=== PATIENT | female | born 1935 | race Two or more races ===

== ENCOUNTER 2016-11-18 21:09 | Inpatient (IN) | payer BC, MEDICARE, OTHER ==
[~2016-11-18] VITALS: Ht 157.5 cm; Wt 67.1 kg
[2016-11-18 21:15] VITALS: BP 148/74
[2016-11-18] MEDS ORDERED: MAG HYDROX/AL HYDROX/SIMETH 30 ML UDC PO PRN (22:30)
[2016-11-18] MEDS ORDERED: MAGNESIUM HYDROXIDE 30 ML UDC PO PRN (22:30)
[2016-11-18] MEDS ORDERED: ACETAMINOPHEN 325 MG TABLET PO PRN (22:30)
[2016-11-18] MEDS ORDERED: HYDR25TA4 PO (23:10)
[2016-11-18] MEDS ORDERED: LOSA50TA21 PO (23:10)
[2016-11-18] MEDS ORDERED: APIX2.5T PO (23:10)
[2016-11-18] MEDS ORDERED: FLUO40CA8 PO (23:10)
[2016-11-18] MEDS ORDERED: LEVO125T8 PO (23:10)
[2016-11-18] MEDS ORDERED: clonazePAM 0.5 MG TABLET ONE (23:36)
[2016-11-18] MEDS: clonazePAM 0.5 MG TABLET PO PRN (23:41)
[2016-11-19] MEDS ORDERED: NEBI10TA2 PO (03:46)
[2016-11-19] MEDS ORDERED: TRAZ-144 PO (03:46)
[2016-11-19] MEDS ORDERED: FOLI1TAB16 PO (03:46)
[2016-11-19] MEDS ORDERED: ALPR0.255 PO (03:46)
[2016-11-19 06:53] LABS: ALBUMIN 3.1 g/dL (3.4-5.0); BILIRUBIN,TOTAL 0.4 mg/dL (0.2-1.0); CALCIUM, SERUM 8.3 mg/dL (8.5-10.1); CREATININE 0.8 mg/dL (0.6-1.3); POTASSIUM 3.5 mmol/L (3.5-5.1); TOTAL PROTEIN, SERUM 6.1 g/dL (6.4-8.2)
[2016-11-19 06:59] LABS: BASOPHILS % (AUTO) 0.9 % (0.0-2.0); EOSINOPHILS # (AUTO) 0.2 /CMM (0.0-0.7); EOSINOPHILS % (AUTO) 5.1 % (0.0-6.0); HEMATOCRIT 41 % (33-45); HEMOGLOBIN 13.9 g/dL (11.5-14.8); LYMPHOCYTES # (AUTO) 0.8 /CMM (0.8-4.8); LYMPHOCYTES % (AUTO) 16.9 % (20.0-44.0); MEAN CORPUSCULAR HEMOGLOBIN 31 PG (26.0-33.0); MEAN CORPUSCULAR HGB CONC 34 g/dl (31.0-36.0); MEAN CORPUSCULAR VOLUME 91 fL (82-100); MONOCYTES # (AUTO) 0.8 /CMM (0.1-1.30); MONOCYTES % (AUTO) 17.9 % (2.0-12.0); NEUTROPHILS # (AUTO) 2.8 /CMM (1.8-8.9); NEUTROPHILS % (AUTO) 59.2 % (43.0-81.0); PLATELET COUNT (AUTO) 270 /CMM (150-450); RED BLOOD CELL COUNT(AUTO) 4.54 MIL/uL (4.0-5.2); WHITE BLOOD COUNT (AUTO) 4.7 K/uL (4.3-11.0)
[2016-11-19 07:38] LABS: DIFF TOTAL % 100 %
[2016-11-19 08:00] VITALS: BP 125/60
[2016-11-19] MEDS: LEVOTHYROXINE SODIUM 125 MCG TABLET PO SCH (08:56)
[2016-11-19] MEDS: LOSARTAN POTASSIUM 50 MG TABLET PO SCH ×2 (08:57→16:46)
[2016-11-19] MEDS: HYDROCHLOROTHIAZIDE 25 MG TABLET PO SCH (08:58)
[2016-11-19] MEDS: APIXABAN 2.5 MG TABLET PO SCH ×2 (09:19→16:47)
[2016-11-19 11:35] LABS: EOSINOPHILS % (MANUAL) 6 % (0-4); LYMPHOCYTES % (MANUAL) 19 % (16-48); PLATELET ESTIMATE ADEQUATE
[2016-11-19 11:36] LABS: RBC MORPHOLOGY COMMENT NORMAL RBC MORPH
[2016-11-19] MEDS: ARIPIPRAZOLE 2 MG TABLET PO SCH (12:41)
[2016-11-19] MEDS: IBUPROFEN 400 MG TABLET PO PRN (12:41)
[2016-11-19] MEDS: FLUOXETINE HCL 20 MG CAPSULE PO SCH (12:41)
[2016-11-19 16:00] VITALS: BP 108/62
[2016-11-19 20:16] VITALS: BP 129/65
[2016-11-19] MEDS: TEMAZEPAM 7.5 MG CAPSULE PO PRN (20:54)
[2016-11-20 08:00] VITALS: BP 139/88
[2016-11-20] MEDS: LEVOTHYROXINE SODIUM 125 MCG TABLET PO SCH (08:17)
[2016-11-20] MEDS: FLUOXETINE HCL 20 MG CAPSULE PO SCH (08:17)
[2016-11-20] MEDS: HYDROCHLOROTHIAZIDE 25 MG TABLET PO SCH (08:17)
[2016-11-20] MEDS: ARIPIPRAZOLE 2 MG TABLET PO SCH (08:18)
[2016-11-20] MEDS: LOSARTAN POTASSIUM 50 MG TABLET PO SCH ×2 (08:18→16:06)
[2016-11-20] MEDS: APIXABAN 2.5 MG TABLET PO SCH ×2 (08:21→16:07)
[2016-11-20 16:04] VITALS: BP 126/76
[2016-11-20 20:00] VITALS: BP_SYST 141; BP_SYST 146; BP_DIAS 62; BP_DIAS 69
[2016-11-20] MEDS: TEMAZEPAM 7.5 MG CAPSULE PO PRN (21:38)
[2016-11-21] MEDS: IBUPROFEN 400 MG TABLET PO PRN ×2 (01:44→14:24)
[2016-11-21 08:00] VITALS: BP 147/84
[2016-11-21] MEDS: LOSARTAN POTASSIUM 50 MG TABLET PO SCH ×2 (09:05→17:06)
[2016-11-21] MEDS: FLUOXETINE HCL 20 MG CAPSULE PO SCH (09:05)
[2016-11-21] MEDS: ARIPIPRAZOLE 2 MG TABLET PO SCH (09:05)
[2016-11-21] MEDS: LEVOTHYROXINE SODIUM 125 MCG TABLET PO SCH (09:05)
[2016-11-21] MEDS: HYDROCHLOROTHIAZIDE 25 MG TABLET PO SCH (09:06)
[2016-11-21] MEDS: APIXABAN 2.5 MG TABLET PO SCH ×2 (09:07→17:06)
[2016-11-21] MEDS: clonazePAM 0.5 MG TABLET PO PRN (11:10)
[2016-11-21] MEDS: FOLIC ACID 1 MG TABLET PO SCH (11:54)
[2016-11-21 16:00] VITALS: BP 119/76
[2016-11-21 20:34] VITALS: BP 143/85
[2016-11-21] MEDS: GUAIFENESIN/CODEINE 10 ML UDC PO PRN (21:47)
[2016-11-21] MEDS: TEMAZEPAM 7.5 MG CAPSULE PO PRN (21:48)
[2016-11-22] MEDS: IBUPROFEN 400 MG TABLET PO PRN ×3 (02:52→18:01)
[2016-11-22] MEDS: GUAIFENESIN/CODEINE 10 ML UDC PO PRN ×3 (03:08→22:18)
[2016-11-22 08:00] VITALS: BP 142/96
[2016-11-22] MEDS: HYDROCHLOROTHIAZIDE 25 MG TABLET PO SCH (08:14)
[2016-11-22] MEDS: LOSARTAN POTASSIUM 50 MG TABLET PO SCH ×2 (08:14→16:39)
[2016-11-22] MEDS: LEVOTHYROXINE SODIUM 125 MCG TABLET PO SCH (08:14)
[2016-11-22] MEDS: APIXABAN 2.5 MG TABLET PO SCH ×2 (08:15→16:40)
[2016-11-22] MEDS: FLUOXETINE HCL 20 MG CAPSULE PO SCH (08:15)
[2016-11-22] MEDS: ARIPIPRAZOLE 2 MG TABLET PO SCH (08:15)
[2016-11-22] MEDS: FOLIC ACID 1 MG TABLET PO SCH (08:15)
[2016-11-22 16:00] VITALS: BP 122/69
[2016-11-22 20:00] VITALS: BP 150/87
[2016-11-22] MEDS: TEMAZEPAM 7.5 MG CAPSULE PO PRN (22:17)
[2016-11-23 08:00] VITALS: BP 148/77
[2016-11-23] MEDS: FLUOXETINE HCL 20 MG CAPSULE PO SCH (08:26)
[2016-11-23] MEDS: HYDROCHLOROTHIAZIDE 25 MG TABLET PO SCH (08:26)
[2016-11-23] MEDS: LEVOTHYROXINE SODIUM 125 MCG TABLET PO SCH (08:26)
[2016-11-23] MEDS: ARIPIPRAZOLE 5 MG TABLET PO SCH (08:26)
[2016-11-23] MEDS: FOLIC ACID 1 MG TABLET PO SCH (08:26)
[2016-11-23] MEDS: LOSARTAN POTASSIUM 50 MG TABLET PO SCH ×2 (08:27→17:48)
[2016-11-23] MEDS: APIXABAN 2.5 MG TABLET PO SCH ×2 (08:37→17:49)
[2016-11-23] MEDS: IBUPROFEN 400 MG TABLET PO PRN ×2 (08:37→17:49)
[2016-11-23] MEDS: GUAIFENESIN/CODEINE 10 ML UDC PO PRN ×2 (08:37→22:04)
[2016-11-23] MEDS ORDERED: MIDAZOLAM HCL 2 MG/2ML VIAL ONE (12:14)
[2016-11-23] MEDS ORDERED: SUCCINYLCHOLINE CHLORIDE 20 MG/ML VIAL ONE (12:14)
[2016-11-23] MEDS ORDERED: ROCURONIUM BROMIDE 50 MG/5 ML ONE (12:14)
[2016-11-23] MEDS ORDERED: FENTANYL PF 100MCG/2ML AMPUL ONE (12:14)
[2016-11-23 16:10] VITALS: BP 124/87
[2016-11-23 19:58] VITALS: BP 131/86
[2016-11-23] MEDS: TEMAZEPAM 7.5 MG CAPSULE PO PRN (22:04)
[2016-11-24] MEDS: IBUPROFEN 400 MG TABLET PO PRN ×3 (00:13→21:31)
[2016-11-24] MEDS: GUAIFENESIN/CODEINE 10 ML UDC PO PRN ×2 (03:33→21:34)
[2016-11-24] MEDS ORDERED: MENTHOL/CETYLPYRD (CEPACOL) 1 LOZ LOZENGE ONE (04:10)
[2016-11-24] MEDS: MENTHOL/CETYLPYRD (CEPACOL) 1 LOZ LOZENGE PO PRN ×2 (04:13→09:20)
[2016-11-24 08:00] VITALS: BP 151/84
[2016-11-24] MEDS: APIXABAN 2.5 MG TABLET PO SCH ×2 (08:31→18:00)
[2016-11-24] MEDS: LEVOTHYROXINE SODIUM 125 MCG TABLET PO SCH (08:32)
[2016-11-24] MEDS: FOLIC ACID 1 MG TABLET PO SCH (08:32)
[2016-11-24] MEDS: FLUOXETINE HCL 20 MG CAPSULE PO SCH (08:33)
[2016-11-24] MEDS: LOSARTAN POTASSIUM 50 MG TABLET PO SCH ×2 (08:33→17:59)
[2016-11-24] MEDS: HYDROCHLOROTHIAZIDE 25 MG TABLET PO SCH (08:34)
[2016-11-24] MEDS: ARIPIPRAZOLE 5 MG TABLET PO SCH (09:00)
[2016-11-24 16:00] VITALS: BP 136/69
[2016-11-24] MEDS ORDERED: PETROLATUM,WHITE PACKET 5 GM PACKET TP PRN (18:30)
[2016-11-24 19:56] VITALS: BP 136/68
[2016-11-24] MEDS: OLANZAPINE 5 MG TABLET PO SCH (21:33)
[2016-11-24] MEDS: TEMAZEPAM 7.5 MG CAPSULE PO PRN (21:33)
[2016-11-25 08:00] VITALS: BP 132/73
[2016-11-25] MEDS: FLUOXETINE HCL 20 MG CAPSULE PO SCH (09:27)
[2016-11-25] MEDS: FOLIC ACID 1 MG TABLET PO SCH (09:27)
[2016-11-25] MEDS: LEVOTHYROXINE SODIUM 125 MCG TABLET PO SCH (09:27)
[2016-11-25] MEDS: HYDROCHLOROTHIAZIDE 25 MG TABLET PO SCH (09:28)
[2016-11-25] MEDS: APIXABAN 2.5 MG TABLET PO SCH ×2 (09:28→16:59)
[2016-11-25] MEDS: LOSARTAN POTASSIUM 50 MG TABLET PO SCH ×2 (09:28→16:58)
[2016-11-25] MEDS: MENTHOL/CETYLPYRD (CEPACOL) 1 LOZ LOZENGE PO PRN (11:44)
[2016-11-25 16:00] VITALS: BP 129/73
[2016-11-25 20:00] VITALS: BP 134/76
[2016-11-25] MEDS: GUAIFENESIN/CODEINE 10 ML UDC PO PRN (21:44)
[2016-11-25] MEDS: IBUPROFEN 400 MG TABLET PO PRN (21:45)
[2016-11-25] MEDS: OLANZAPINE 5 MG TABLET PO SCH (21:45)
[2016-11-25] MEDS: TEMAZEPAM 7.5 MG CAPSULE PO PRN (21:46)
[2016-11-26 08:00] VITALS: BP 131/78
[2016-11-26] MEDS: FOLIC ACID 1 MG TABLET PO SCH (09:17)
[2016-11-26] MEDS: FLUOXETINE HCL 20 MG CAPSULE PO SCH (09:17)
[2016-11-26] MEDS: LEVOTHYROXINE SODIUM 125 MCG TABLET PO SCH (09:18)
[2016-11-26] MEDS: LOSARTAN POTASSIUM 50 MG TABLET PO SCH (09:18)
[2016-11-26 09:19] VITALS: BP 131/78
[2016-11-26] MEDS: HYDROCHLOROTHIAZIDE 25 MG TABLET PO SCH (09:19)
[2016-11-26] MEDS: APIXABAN 2.5 MG TABLET PO SCH (09:23)
[2016-11-26] MEDS: GUAIFENESIN/CODEINE 10 ML UDC PO PRN (11:43)
== END 2016-11-26 12:00 | disposition home or self-care (01) | DRG 885 ==
LOC: GPS 21:09
PROVIDERS: ADMIT Psychiatry & Neurology Psychiatry; ATTEND Family Medicine
DX: F33.2 Major depressive disorder, recurrent severe without psychotic features (principal); R45.851 Suicidal ideations; F29 Unspecified psychosis not due to a substance or known physiological condition; E03.9 Hypothyroidism, unspecified; I10 Essential (primary) hypertension; I25.10 Atherosclerotic heart disease of native coronary artery without angina pectoris; I48.91 Unspecified atrial fibrillation; F41.1 Generalized anxiety disorder; Z79.01 Long term (current) use of anticoagulants
CPT/HCPCS: 36415; 80053-TC; 80061-TC; 84443-TC; 85025-TC; 87081-TC; 97001-TC; J0330; J2250; J3010